=== PATIENT | female | born 1995 | race Asian ===

== ENCOUNTER 2019-03-27 13:19 | Emergency (ER) | payer OTHER ==
[~2019-03-27] VITALS: Ht 157.5 cm; Wt 79.2 kg
[2019-03-27 13:23] VITALS: BP 139/82; PULSE 66; RESP 20; Ht 157.5 cm; Wt 79.2 kg
[2019-03-27] MEDS ORDERED: DIPHTH/TET/ACEL PERTUSS (ADULT) 0.5 ML VIAL IM* ONE (15:30)
[2019-03-27] MEDS ORDERED: LIDOCAINE 1% (MPF) 5 ML VIAL INFIL ONE (15:30)
[2019-03-27] MEDS ORDERED: ACETAMINOPHEN 325 MG TAB PO ONE (15:30)
[2019-03-27] MEDS ORDERED: ACET-141 PO (16:16)
--- NOTE | 2019-03-27 16:22 | ERD ---
ER Documentation Chief Complaint Chief Complaint Complains of laceration to the left hand after running into a glass wall HPI 23-year-old female with history of autism presents for left hand laceration status post running into a glass window. Patient was in a facility where she goes to 4 activities and the staff states that she was running around and accidentally ran into the glass window. She has a bleeding cut over the left hand between the left thumb and left index finger. Unable to get the quality or intensity of the pain given patient's history of autism. Staff members who accompany the patient states that she has been moving her hands and fingers. No other modifying factors noted. No treatment tried at home. ROS All systems reviewed and are negative except as per history of present illness. Medications Home Meds Active Scripts Acetaminophen* (Acetaminophen*) 500 MG Extra Strength Tablet, 500 MG PO Q4H PRN for PAIN AND OR ELEVATED TEMP, #30 TAB Prov:LEONA RENDON DO 03/27/19 Allergies Allergies: Coded Allergies: No Known Allergy (Unverified , 03/27/19) PMhx/Soc History of Surgery: Yes (bilateral leg sx) Anesthesia Reaction: No Hx Miscellaneous Medical Probl: Yes (autism) Hx Alcohol Use: No Hx Substance Use: No Hx Tobacco Use: No Smoking Status: Never smoker FmHx Family History: No coronary disease Physical Exam Vitals Vital Signs Date Temp Pulse Resp B/P (MAP) Pulse Ox O2 O2 Flow FiO2 Time Delivery Rate 03/27/19 98.8 66 20 139/82 96 13:23 (101) Physical Exam Const: No acute distress Resp: Clear to auscultation bilaterally Cardio: Regular rate and rhythm, no murmurs Skin: No petechiae or rashes Back: No midline or flank tenderness Neur: Awake and alert Psych: Normal Mood and Affect Upper Extremity -left: Skin: Laceration noted over the left hand on the dorsal side between the thumb and first digit, bleeding is currently controlled Compartments: Soft Motor: Full active range of motion shoulder/elbow, patient is able to move her left hand and fingers Sensation: Unable to assess given patient's history of autism and limited medication Bones: Nontender humerus/elbow/forearm/wrist/hand Snuffbox: Nontender Joints: There is mild swelling noted over the left thumb and first digit over the left side Pulses/Perfusion: 2+ radial, Capillary refill < 2 seconds Results 24 hrs Current Medications Medications Dose Sig/Micki Start Time Status Last (Trade) Ordered Route PRN Stop Time Admin Dose Reason Admin Diphtheria/ 0.5 ml ONCE ONCE 03/27/19 DC 03/27/19 Tetanus/Acell IM* 15:30 03/27/19 15:22 Pertussis 15:31 (Adacel) Lidocaine 5 ml ONCE ONCE 03/27/19 DC (Xylocaine INFIL 15:30 03/27/19 1% (Mpf)) 15:31 650 mg ONCE ONCE 03/27/19 DC 03/27/19 Acetaminophen PO 15:30 03/27/19 15:34 (Tylenol 15:31 Tab) Procedures/MDM Laceration Repair by me: Anesthesia: None Location: Left hand Tendon/Joint/Nerves: No injury Foreign body: None detected after copious irrigation and exploration and after x-ray of the left hand Technique: Steri-Strip Complexity: No subcutaneous sutures/mucosal repair/edge excision Post Closure Length: 2 cm Patient's bleeding was easily controlled in the department and there is no indication of anemia. No evidence of compartment syndrome, neurologic injury, vascular injury, open joint, tendon laceration, or foreign body. Patient is appropriate for outpatient follow up. 48 hour wound check. Scar minimization instructions given. Medical Decision Making: Patient with history of autism presents with left hand laceration. Attempted to suture the laceration however the patient could not tolerate the local lidocaine anesthesia. Therefore decision was made to repair with Steri-Strips, see procedure note above Patient appeared well on physical exam. Parents advised to return to the ER in 48 hours for wound check Wound care instructions given Patient given a tetanus shot in the ER and Tylenol. . Given prescription for supportive medication. Patient advised to follow up with PCP in 1-2 days. Patient advised to return to ED for new or worsening symptoms. Patient stable on discharge from the ED. Disclaimer: Inadvertent spelling and grammatical errors are likely due to EHR/dictation software use and do not reflect on the overall quality of patient care. Also, please note that the electronic time recorded on this note does not necessarily reflect the actual time of the patient encounter. Departure Diagnosis: Primary Impression: Hand laceration Encounter type: initial encounter Foreign body presence: without foreign body Laterality: left Qualified Codes: S61.412A - Laceration without foreign body of left hand, initial encounter Condition: Fair Patient Instructions: Laceration, All Referrals: [facility] YOU HAVE RECEIVED A MEDICAL SCREENING EXAM AND THE RESULTS INDICATE THAT YOU DO NOT HAVE A CONDITION THAT REQUIRES URGENT TREATMENT IN THE EMERGENCY DEPARTMENT. FURTHER EVALUATION AND TREATMENT OF YOUR CONDITION CAN WAIT UNTIL YOU ARE SEEN IN YOUR DOCTORS OFFICE WITHIN THE NEXT 1-2 DAYS. IT IS YOUR RESPONSIBILITY TO MAKE AN APPOINTMENT FOR FOLOW-UP CARE. IF YOU HAVE A PRIMARY DOCTOR --you should call your primary doctor and schedule an appointment IF YOU DO NOT HAVE A PRIMARY DOCTOR YOU CAN CALL OUR PHYSICIAN REFERRAL HOTLINE AT IF YOU CAN NOT AFFORD TO SEE A PHYSICIAN YOU CAN CHOSE FROM THE FOLLOWING [facility] [address] [facility]. [facility] [address] [facility] [facility] [address] [facility] [facility] [address] [facility] [facility] [address] [facility]. [facility]. [address] Additional Instructions: Call your primary care doctor TOMORROW for an appointment during the next 1-2 days.See the doctor sooner or return here if your condition worsens before your appointment time. LEONA RENDON DO March 27, 2019 16:22
== END 2019-03-27 16:23 | disposition home or self-care (01) ==
LOC: FTE 13:19
DX: S61.412A Laceration without foreign body of left hand, initial encounter (principal); F84.0 Autistic disorder; W25.XXXA Contact with sharp glass, initial encounter; Y92.89 Other specified places as the place of occurrence of the external cause; Z23 Encounter for immunization
CPT/HCPCS: 73130; 90471; 90715; Z7502; Z7610

== ENCOUNTER → 2019-03-27 | Emergency (ER) | payer OTHER ==
[~2019-03-27] VITALS: Wt 79.2 kg
[~2019-03-27] MED LIST: ACET-141 PO
[2019-03-27 17:59] VITALS: BP 136/79; PULSE 70; RESP 18
--- NOTE | 2019-03-27 19:15 | ERD ---
ER Documentation Chief Complaint Chief Complaint reopened wound on the left hand,pt came back HPI 23-year-old female history of autism brought in by her parents for left hand laceration recheck. Patient was seen in the ER earlier for the same issue and because of her autism and inability to cooperate the laceration was repaired with Steri-Strips and was protected with Nick bandage. Parent states that she was being driven home by her caretakers and she was sitting in the backseat on her own and she took off the Nick bandage and remove the Steri-Strip. There is some bleeding currently. Otherwise no other modifying factors noted. No other treatments tried at home. ROS All systems reviewed and are negative except as per history of present illness. Medications Home Meds Active Scripts Acetaminophen* (Acetaminophen*) 500 MG Extra Strength Tablet, 500 MG PO Q4H PRN for PAIN AND OR ELEVATED TEMP, #30 TAB Prov:LEONA RENDON DO 03/27/19 Allergies Allergies: Coded Allergies: No Known Allergy (Unverified , 03/27/19) PMhx/Soc History of Surgery: Yes (bilateral leg sx) Anesthesia Reaction: No Hx Miscellaneous Medical Probl: Yes (autism) Hx Alcohol Use: No Hx Substance Use: No Hx Tobacco Use: No Smoking Status: Never smoker Physical Exam Vitals Vital Signs Date Temp Pulse Resp B/P (MAP) Pulse Ox O2 O2 Flow FiO2 Time Delivery Rate 03/27/19 98.7 70 18 136/79 96 17:59 (98) Physical Exam Const: No acute distress Resp: Clear to auscultation bilaterally Cardio: Regular rate and rhythm, no murmurs Skin: Left hand laceration noted, clean dry intact, mild bleeding currently. Ext: No cyanosis, or edema Neur: Awake and alert Psych: Normal Mood and Affect Procedures/MDM Laceration Repair by me: Anesthesia: none Location: left hand Tendon/Joint/Nerves: No injury Foreign body: None detected after copious irrigation and exploration Technique: steri-strip Complexity: No subcutaneous sutures/mucosal repair/edge excision Post Closure Length: 2 cm Patient's bleeding was easily controlled in the department and there is no indication of anemia. No evidence of compartment syndrome, neurologic injury, vascular injury, open joint, tendon laceration, or foreign body. Patient is appropriate for outpatient follow up. 48 hour wound check. Scar minimization instructions given. Medical Decision Makin-year-old female history of autism presents for recheck of her left hand laceration. Given her inability to cooperate the left eye laceration was repaired with Steri-Strips and Nick bandage wraps wrapped around patient's and. Unfortunately the patient took off the Nick bandage and remove the Steri-Strip. Discussed with mother that it is not safe currently to put the stitches on the patient because likely she will go home and pull out the state stitches on her own which could cause more damage to the wound. The left hand laceration was placed with a Steri-Strip and again wrapped with nick bandage. Advised to return to the ER in 2 days for recheck of the wound, return in 5 days for suture removal Patient advised to follow up with PCP in 1-2 days. Patient advised to return to ED for new or worsening symptoms. Patient stable on discharge from the ED. Disclaimer: Inadvertent spelling and grammatical errors are likely due to EHR/dictation software use and do not reflect on the overall quality of patient care. Also, please note that the electronic time recorded on this note does not necessarily reflect the actual time of the patient encounter. Departure Diagnosis: Primary Impression: Laceration Condition: Fair Patient Instructions: Laceration, All Additional Instructions: Call your primary care doctor TOMORROW for an appointment during the next 1-2 days.See the doctor sooner or return here if your condition worsens before your appointment time. LEONA RENDON DO March 27, 2019 19:15
== END | disposition home or self-care (01) ==
LOC: FTE 17:23
DX: S61.412A Laceration without foreign body of left hand, initial encounter (principal); X58.XXXA Exposure to other specified factors, initial encounter; Y92.9 Unspecified place or not applicable
CPT/HCPCS: 99282

== ENCOUNTER 2019-03-29 14:56 | Emergency (ER) | payer OTHER ==
[~2019-03-29] VITALS: Ht 165.1 cm; Wt 77.7 kg
[2019-03-29 15:11] VITALS: BP 138/89; PULSE 100; RESP 18; Ht 165.1 cm; Wt 77.7 kg
--- NOTE | 2019-03-29 16:37 | ERD ---
ER Documentation Chief Complaint Chief Complaint 2 day left hand wound check HPI Patient is a 23-year-old female with autism who presents for a wound check. The patient had a cut to her left hand 2 days ago. It was dressed in bandages and glue was placed. Sutures were not placed because she does have autism and picks it stitches. She has no fevers and no pus. The wound was left to heal by secondary intention. ROS All systems reviewed and are negative except as per history of present illness. Medications Home Meds Active Scripts Acetaminophen* (Acetaminophen*) 500 MG Extra Strength Tablet, 500 MG PO Q4H PRN for PAIN AND OR ELEVATED TEMP, #30 TAB Prov:LEONA RENDON DO 03/27/19 Allergies Allergies: Coded Allergies: No Known Allergy (Unverified , 03/27/19) PMhx/Soc History of Surgery: Yes (bilateral leg sx) Anesthesia Reaction: No Hx Miscellaneous Medical Probl: Yes (autism) Hx Alcohol Use: No Hx Substance Use: No Hx Tobacco Use: No FmHx Family History: diabetes Physical Exam Vitals Vital Signs Date Temp Pulse Resp B/P (MAP) Pulse Ox O2 O2 Flow FiO2 Time Delivery Rate 03/29/19 98.6 100 18 138/89 99 15:11 (105) Physical Exam Const: No acute distress Head: Atraumatic Eyes: Normal Conjunctiva ENT: Normal External Ears, Nose and Mouth. Neck: Full range of motion. No meningismus. Resp: Clear to auscultation bilaterally Cardio: Regular rate and rhythm, no murmurs Abd: Soft, non tender, non distended. Normal bowel sounds Skin: Incision is clean, dry, and intact, there is no sign of infection. The wound will heal by secondary intention Back: No midline or flank tenderness Ext: No cyanosis, or edema Neur: Awake and alert Psych: Autism at baseline Procedures/MDM Wound shows no evidence of infection, foreign body, neurologic injury, vascular injury, open joint or tendon laceration. Patient appropriate for outpatient follow up. Departure Diagnosis: Primary Impression: Encounter for wound re-check Condition: Fair Patient Instructions: Wound Check, Lac F/U (No Infection) Referrals: Your doctor Additional Instructions: Call your primary care doctor TOMORROW for an appointment during the next 1 WEEK.Tell the medical unit secretary that you were referred from this facility.See the doctor sooner or return here if your condition worsens before your appointment time. LEANNA ARELLANO MD March 29, 2019 16:37
== END 2019-03-29 16:40 | disposition home or self-care (01) ==
LOC: E/R 14:56
DX: Z48.01 Encounter for change or removal of surgical wound dressing (principal)
CPT/HCPCS: 99281